=== PATIENT | female | born 1995 | race Two or more races ===

== ENCOUNTER → 2016-11-02 | Outpatient (REF) | payer OTHER | LOC: M LAB REF 14:27 | PROVIDERS: ATTEND Advanced Practice Midwife | DX: O36.80X0 Pregnancy with inconclusive fetal viability, not applicable or unspecified (principal) ==

== ENCOUNTER → 2016-11-04 | Outpatient (REF) | payer OTHER | LOC: M SFHCLERA 08:27 | PROVIDERS: ATTEND Family Medicine | DX: K50.919 Crohn's disease, unspecified, with unspecified complications (principal) ==

== ENCOUNTER → 2016-11-05 | Outpatient (REF) | payer BC, OTHER ==
[~2016-11-05] MED LIST: FEXO60CA PO; FLUTISP; FOLI1TAB4 PO; MERC50TA2 PO; RIZA5TAB PO; SULF500T2 PO; VITA-137 PO; VITA250L PO; ZOFR4TAB3 PO
== END ==
LOC: M LAB REF 13:31
PROVIDERS: ATTEND Obstetrics & Gynecology
DX: O36.80X0 Pregnancy with inconclusive fetal viability, not applicable or unspecified (principal)

== ENCOUNTER → 2016-11-08 | Outpatient (REF) | payer BC, OTHER | LOC: M LAB REF 16:24 | PROVIDERS: ATTEND Advanced Practice Midwife | DX: O20.0 Threatened abortion (principal) ==

== ENCOUNTER → 2016-11-09 | Outpatient (REF) | payer BC, OTHER | LOC: M LAB REF 12:02 | PROVIDERS: ATTEND Advanced Practice Midwife | DX: O20.0 Threatened abortion (principal) ==

== ENCOUNTER → 2016-11-15 | Outpatient (REF) | payer BC, OTHER | LOC: M LAB REF 12:48 | PROVIDERS: ATTEND Advanced Practice Midwife | DX: O02.1 Missed abortion (principal) ==

== ENCOUNTER → 2016-12-29 | Outpatient (REF) | payer OTHER | LOC: M SFHCLERA 10:08 | PROVIDERS: ATTEND Nurse Practitioner Family | DX: J02.9 Acute pharyngitis, unspecified (principal) ==

== ENCOUNTER → 2017-02-23 | Outpatient (CLI) | payer BC, OTHER ==
--- NOTE | 2017-02-23 16:48 | REP ---
CERVICAL SPINE SERIES: Full cervical spine series was performed with 7 total views obtained. There is no fracture or dislocation. Vertebral bodies are normal in height and are well aligned with normal cervical lordosis. There is no subluxation with flexion or extension. There is no prevertebral soft tissue swelling. Disc spaces are well preserved. I do not see radiographic evidence of significant neural foraminal narrowing. IMPRESSION: Negative cervical spine series. Signed by Alek Lomeli MD 02/23/2017 05:15 P
== END ==
LOC: M LRY 15:29
PROVIDERS: ATTEND Family Medicine
DX: S06.0X0A Concussion without loss of consciousness, initial encounter (principal); M54.2 Cervicalgia; X58.XXXA Exposure to other specified factors, initial encounter; Y92.89 Other specified places as the place of occurrence of the external cause; Y99.9 Unspecified external cause status

== ENCOUNTER → 2017-03-19 | Outpatient (REF) | payer BC, OTHER | LOC: M SFHCLERA 10:10 | PROVIDERS: ATTEND Nurse Practitioner Family | DX: J02.9 Acute pharyngitis, unspecified (principal) ==

== ENCOUNTER 2017-04-24 16:46 | Emergency (ER) | payer BC, OTHER ==
[~2017-04-24] VITALS: Ht 167.6 cm; Wt 61.4 kg
[2017-04-24] MEDS ORDERED: MERC50TA2 PO (17:00)
[2017-04-24] MEDS ORDERED: SULF500T2 PO (17:00)
[2017-04-24] MEDS ORDERED: FLUTISP (17:00)
[2017-04-24] MEDS ORDERED: FEXO60CA PO (17:00)
[2017-04-24] MEDS ORDERED: FOLI1TAB4 PO (17:02)
[2017-04-24] MEDS ORDERED: VITA250L PO (17:02)
[2017-04-24] MEDS ORDERED: ZOFR4TAB3 PO (17:02)
[2017-04-24] MEDS ORDERED: VITA-137 PO (17:02)
[2017-04-24] MEDS ORDERED: RIZA5TAB PO (17:02)
--- NOTE | 2017-04-24 19:30 | REPUSA ---
CT of the head Clinical history: Headache. Technique: Multiple axial CT images were obtained through the head without administration of contrast . Findings: The ventricles and sulci are symmetric bilaterally. There is no evidence of acute hemorrhag e or infarct. There is no midline shift, mass effect, or extra-axial fluid collection. The osseous st ructures are unremarkable. The visualized paranasal sinuses and mastoid air cells are clear. Impression: Negative study.
[2017-04-24 20:02] VITALS: BP 119/88
== END 2017-04-24 20:05 | disposition home or self-care (01) ==
LOC: M ED 16:46
DX: S06.0X0A Concussion without loss of consciousness, initial encounter (principal); T50.905A Adverse effect of unspecified drugs, medicaments and biological substances, initial encounter; W01.0XXA Fall on same level from slipping, tripping and stumbling without subsequent striking against object, initial encounter; Y92.018 Other place in single-family (private) house as the place of occurrence of the external cause; Y93.89 Activity, other specified; Y99.8 Other external cause status; I34.1 Nonrheumatic mitral (valve) prolapse; K50.90 Crohn's disease, unspecified, without complications; Z79.899 Other long term (current) drug therapy

== ENCOUNTER → 2017-05-24 | Outpatient (CLI) | payer BC, OTHER ==
[2017-05-24 15:47] LABS: MEAN CORPUSCULAR HEMOGLOBIN 28.7 pg (27.0-33.0); MEAN CORPUSCULAR HGB CONC 31.6 g/dl (32.0-36.5); MEAN CORPUSCULAR VOLUME 90.9 fl (80.0-96.0); PLATELET COUNT, AUTOMATED 298 10^3/uL (150-450); RED CELL DISTRIBUTION WIDTH 13.8 % (11.5-14.5); WHITE BLOOD COUNT 8.4 10^3/uL (4.0-10.0)
[2017-05-24 16:22] LABS: HCG, SERUM QUANTITATIVE 1449 MIU/ML
[2017-05-25 12:26] LABS: HBsAg Prenatal NEGATIVE (NEGATIVE)
== END ==
LOC: M LAB REF 15:18
PROVIDERS: ATTEND Advanced Practice Midwife
DX: Z32.01 Encounter for pregnancy test, result positive (principal)

== ENCOUNTER → 2017-05-26 | Outpatient (REF) | payer BC, OTHER | LOC: M LAB REF 13:31 | PROVIDERS: ATTEND Advanced Practice Midwife | DX: O02.81 Inappropriate change in quantitative human chorionic gonadotropin (hCG) in early pregnancy (principal) ==

== ENCOUNTER → 2017-06-01 | Outpatient (REF) | payer BC, OTHER | LOC: M LAB REF 13:36 | PROVIDERS: ATTEND Advanced Practice Midwife | DX: O02.81 Inappropriate change in quantitative human chorionic gonadotropin (hCG) in early pregnancy (principal); O36.80X0 Pregnancy with inconclusive fetal viability, not applicable or unspecified ==

== ENCOUNTER → 2017-06-07 | Outpatient (REF) | payer BC, OTHER | LOC: M LAB REF 12:52 | PROVIDERS: ATTEND Advanced Practice Midwife | DX: O36.80X0 Pregnancy with inconclusive fetal viability, not applicable or unspecified (principal); Z3A.00 Weeks of gestation of pregnancy not specified ==

== ENCOUNTER → 2017-06-14 | Outpatient (REF) | payer BC, OTHER | LOC: M LAB REF 13:53 | PROVIDERS: ATTEND Advanced Practice Midwife | DX: O03.9 Complete or unspecified spontaneous abortion without complication (principal) ==

== ENCOUNTER → 2017-06-20 | Outpatient (REF) | payer BC, OTHER | LOC: M LAB REF 12:13 | PROVIDERS: ATTEND Advanced Practice Midwife | DX: O03.9 Complete or unspecified spontaneous abortion without complication (principal) ==

== ENCOUNTER → 2017-08-20 | Outpatient (REF) | payer BC, OTHER ==
[2017-08-20 16:12] LABS: INFLUENZA A AMPLIFICATION NEGATIVE (NEGATIVE); INFLUENZA B AMPLIFICATION NEGATIVE (NEGATIVE)
== END ==
LOC: M SFHCLERA 11:51
DX: R68.89 Other general symptoms and signs (principal); J02.9 Acute pharyngitis, unspecified
CPT/HCPCS: 87502

== ENCOUNTER 2018-02-11 19:49 | Emergency (ER) | payer BC, OTHER ==
[2018-02-11] MEDS: PENICILLIN V POTASSIUM 500 MG TAB PO (20:39)
[2018-02-11] MEDS: NORCO 5/325MG TABLET (BULK FOR ED) PO (20:40)
== END 2018-02-11 20:43 | disposition home or self-care (01) ==
LOC: M ED 19:49
DX: K04.7 Periapical abscess without sinus (principal); K08.89 Other specified disorders of teeth and supporting structures; K50.919 Crohn's disease, unspecified, with unspecified complications; Z79.899 Other long term (current) drug therapy
CPT/HCPCS: 99282